=== PATIENT | female | born 1990 | race African-American/Black ===

== ENCOUNTER 2016-03-01 12:18 | Emergency (ER) | payer MEDICAID ==
[~2016-03-01] VITALS: Ht 165.1 cm; Wt 59.1 kg
[2016-03-01 12:22] VITALS: BP 126/88; PULSE 89; TEMP 98.7
[2016-03-01 13:09] LABS: BASO % 0.5 % (0.0-2.0); EOS % 0.5 % (0-4.0); GRAN # 3.9 (1.4-6.5); GRAN % 61.8 % (42.2-75.2); HEMATOCRIT 37.6 % (37.0-47.0); HEMOGLOBIN 12.3 g/dl (12.5-16.0); LYMPH # 2.1 (1.2-3.4); MEAN CELL VOLUME 78 fl (80.0-100.0); MEAN CORPUSCULAR HEMOGLOBIN 25 pg (27.0-31.0); MEAN CORPUSCULAR HGB CONC 33 g/dl (33.0-37.0); MEAN PLATELET VOLUME 9.7 fl (7.4-10.4); MONO # 0.3 (0.1-0.6); PLATELET COUNT 214 K/mm3 (130-400); RED BLOOD COUNT 4.85 M/mm3 (4.10-5.30); REDCELL DISTRIBUTION WIDTH-CV 14.1 % (11.5-14.5); WHITE BLOOD COUNT 6.2 K/mm3 (4.8-10.8)
[2016-03-01 13:17] LABS: PH 5 (5-8); SQUAMOUS EPITHELIAL 20-50 /hpf; URINE APPEARANCE Cloudy; URINE BACTERIA Rare /hpf; URINE BILIRUBIN Negative (NEGATIVE); URINE BLOOD Negative (NEGATIVE); URINE COLOR Yellow; URINE GLUCOSE Negative (NEGATIVE); URINE KETONE Negative (NEGATIVE); URINE RBC 0-2 /hpf
[2016-03-01 13:29] LABS: ADJUSTED CALCIUM 9.1 mg/dL (8.4-10.2); ALBUMIN 4.5 gm/dL (3.5-5.0); CALCIUM 9.5 mg/dL (8.4-10.2); CREATININE, serum 0.74 mg/dL (0.52-1.25); POTASSIUM 4.1 mmol/L (3.4-5.0); TOTAL PROTEIN 8.1 gm/dL (6.4-8.2)
[2016-03-01] MEDS ORDERED: ZOFRAN ODT4 MG PO (14:09)
== END 2016-03-01 14:14 | disposition home or self-care (01) ==
LOC: COL.ER 12:18
PROVIDERS: Physician Assistant
DX: K52.9 Noninfective gastroenteritis and colitis, unspecified (principal)
CPT/HCPCS: C9113; J2765; J7030

== ENCOUNTER 2016-06-03 19:02 | Emergency (ER) | payer MEDICAID ==
[~2016-06-03] VITALS: Ht 165.1 cm; Wt 59.1 kg
[~2016-06-03 19:02] MED LIST: ZOFRAN ODT4 MG PO
[2016-06-03 19:05] VITALS: TEMP 98.1
[2016-06-03 19:39] VITALS: BP 134/67; PULSE 86
== END 2016-06-03 19:39 | disposition home or self-care (01) ==
LOC: COL.ER 19:02
DX: M65.4 Radial styloid tenosynovitis [de Quervain] (principal)

== ENCOUNTER 2016-07-04 17:51 | Emergency (ER) | payer MEDICAID ==
[~2016-07-04] VITALS: Ht 165.1 cm; Wt 58.2 kg
[2016-07-04 17:55] VITALS: BP 134/88; TEMP 98.3
[2016-07-04 18:32] LABS: BASO % 0.5 % (0.0-2.0); EOS # 0.1 (0.0-0.7); GRAN # 3.5 (1.4-6.5); LYMPH # 2.3 (1.2-3.4); LYMPH % 36.9 % (20.0-51.0); MEAN CELL VOLUME 80 fl (80.0-100.0); MEAN CORPUSCULAR HGB CONC 33 g/dl (33.0-37.0); MONO # 0.3 (0.1-0.6); MONO % 4.4 % (1.7-9.3); PLATELET COUNT 274 K/mm3 (130-400); RED BLOOD COUNT 4.42 M/mm3 (4.10-5.30); REDCELL DISTRIBUTION WIDTH-CV 14.1 % (11.5-14.5); WHITE BLOOD COUNT 6.2 K/mm3 (4.8-10.8)
[2016-07-04 18:37] LABS: PH 7 (5-8); SQUAMOUS EPITHELIAL 0-2 /hpf; URINE APPEARANCE Clear; URINE BACTERIA None Seen /hpf; URINE BILIRUBIN Negative (NEGATIVE); URINE BLOOD Negative (NEGATIVE); URINE COLOR Yellow; URINE GLUCOSE Negative (NEGATIVE); URINE KETONE Negative (NEGATIVE); URINE RBC 0-2 /hpf; URINE UROBILINOGEN Negative (NEGATIVE); URINE WBC 0-2 /hpf
[2016-07-04 18:38] LABS: HEMATOCRIT 35.5 % (37.0-47.0); HEMOGLOBIN 11.6 g/dl (12.5-16.0); MEAN CORPUSCULAR HEMOGLOBIN 26 pg (27.0-31.0)
[2016-07-04 18:45] LABS: ADJUSTED CALCIUM 8.4 mg/dL (8.4-10.2); ALANINE AMINOTRANSFERASE 19 U/L (9-52); ALBUMIN 4.3 gm/dL (3.5-5.0); ALKALINE PHOSPHATASE 60 U/L (50-136); ANION GAP 13 mmol/L (7-16); BILIRUBIN,TOTAL 0.6 mg/dL (0.0-1.0); BLOOD UREA NITROGEN 10 mg/dL (7-17); C-REACTIVE PROTEIN < 0.5 mg/dL (0.0-0.9); CALCIUM 8.6 mg/dL (8.4-10.2); CARBON DIOXIDE 24 mmol/L (22-30); CHLORIDE 102 mmol/L (98-107); CREATININE, serum 0.71 mg/dL (0.52-1.25); GLUCOSE 88 mg/dL (74-106); POTASSIUM 4.2 mmol/L (3.4-5.0); SODIUM 139 mmol/L (137-145); TOTAL PROTEIN 7.7 gm/dL (6.4-8.2)
[2016-07-04] MEDS ORDERED: ULTRAM 50MG TAB50 MG PO (20:17)
[2016-07-04 20:29] VITALS: PULSE 72
== END 2016-07-04 20:31 | disposition home or self-care (01) ==
LOC: COL.ER 17:51
PROVIDERS: Nurse Practitioner
DX: R10.11 Right upper quadrant pain (principal); R11.0 Nausea
CPT/HCPCS: J1170; J2405; J7030

== ENCOUNTER 2016-07-11 17:22 | Emergency (ER) | payer MEDICAID ==
[~2016-07-11] VITALS: Ht 165.1 cm; Wt 57.7 kg
[~2016-07-11 17:22] MED LIST changes: +ULTRAM 50MG TAB50 MG PO
[2016-07-11 17:25] VITALS: TEMP 98
[2016-07-11 18:17] LABS: BASO % 0.5 % (0.0-2.0); EOS # 0.1 (0.0-0.7); EOS % 0.8 % (0-4.0); GRAN # 3.5 (1.4-6.5); GRAN % 57.4 % (42.2-75.2); HEMATOCRIT 36.9 % (37.0-47.0); HEMOGLOBIN 11.7 g/dl (12.5-16.0); LYMPH # 2.2 (1.2-3.4); LYMPH % 35.2 % (20.0-51.0); MEAN CELL VOLUME 81 fl (80.0-100.0); MEAN CORPUSCULAR HEMOGLOBIN 26 pg (27.0-31.0); MEAN CORPUSCULAR HGB CONC 32 g/dl (33.0-37.0); MONO # 0.4 (0.1-0.6); MONO % 5.9 % (1.7-9.3); PLATELET COUNT 245 K/mm3 (130-400); RED BLOOD COUNT 4.57 M/mm3 (4.10-5.30); REDCELL DISTRIBUTION WIDTH-CV 14.3 % (11.5-14.5); WHITE BLOOD COUNT 6.1 K/mm3 (4.8-10.8)
[2016-07-11 18:19] LABS: PH 7 (5-8); URINE APPEARANCE Clear; URINE BILIRUBIN Negative (NEGATIVE); URINE BLOOD Negative (NEGATIVE); URINE COLOR Straw; URINE GLUCOSE Negative (NEGATIVE); URINE KETONE Negative (NEGATIVE); URINE UROBILINOGEN Negative (NEGATIVE)
[2016-07-11 18:23] LABS: URINE RBC None Seen /hpf; URINE WBC None Seen /hpf
[2016-07-11 18:26] LABS: ADJUSTED CALCIUM 8.5 mg/dL (8.4-10.2); ALBUMIN 4.4 gm/dL (3.5-5.0); BILIRUBIN,TOTAL 0.8 mg/dL (0.0-1.0); CALCIUM 8.8 mg/dL (8.4-10.2); CREATININE, serum 0.67 mg/dL (0.52-1.25); POTASSIUM 4.3 mmol/L (3.4-5.0); TOTAL PROTEIN 7.7 gm/dL (6.4-8.2)
[2016-07-11] MEDS ORDERED: VALIUM 2MG T2 MG/TAB PO (20:24)
[2016-07-11 20:35] VITALS: BP 122/90; PULSE 78
== END 2016-07-11 20:37 | disposition home or self-care (01) ==
LOC: COL.ER 17:22
PROVIDERS: Physician Assistant Medical
DX: M54.5 Low back pain (principal); R10.11 Right upper quadrant pain
CPT/HCPCS: J1885; J7030; Q9967

== ENCOUNTER 2018-05-04 12:24 | Emergency (ER) | payer SELFPAY ==
[~2018-05-04] VITALS: Ht 165.1 cm; Wt 61.6 kg
[~2018-05-04 12:24] MED LIST changes: +VALIUM 2MG T2 MG/TAB PO
[2018-05-04 12:32] VITALS: TEMP 98.6
[2018-05-04] MEDS ORDERED: AMOXICILLIN875 MG PO (13:39)
[2018-05-04 13:46] VITALS: BP 122/80; PULSE 88
== END 2018-05-04 13:46 | disposition home or self-care (01) ==
LOC: COL.ER 12:24
DX: J04.0 Acute laryngitis (principal); J02.9 Acute pharyngitis, unspecified; J01.90 Acute sinusitis, unspecified

== ENCOUNTER 2020-03-29 10:40 | Emergency (ER) | payer SELFPAY ==
[~2020-03-29] VITALS: Ht 165.1 cm; Wt 68.2 kg
[~2020-03-29 10:40] MED LIST changes: +AMOXICILLIN875 MG PO; +CEPHALEXIN500 M1 PO
[2020-03-29 10:45] VITALS: BP 172/121; PULSE 94; TEMP 98.3
== END 2020-03-29 11:34 | disposition home or self-care (01) ==
LOC: COL.ER 10:40
DX: S02.5XXA Fracture of tooth (traumatic), initial encounter for closed fracture (principal); X58.XXXA Exposure to other specified factors, initial encounter
CPT/HCPCS: J1885

== ENCOUNTER 2020-05-15 11:32 | Emergency (ER) | payer OTHER ==
[~2020-05-15] VITALS: Ht 165.1 cm; Wt 65.9 kg
[2020-05-15 12:05] VITALS: TEMP 98.3
[2020-05-15 12:39] LABS: BASO # 0.1 (0.0-0.2); BASO % 0.6 % (0.0-2.0); EOS # 0.1 (0.0-0.7); EOS % 0.5 % (0-4.0); GRAN # 8.1 (1.4-6.5); GRAN % 78.4 % (42.2-75.2); HEMOGLOBIN 10.6 g/dl (12.5-16.0); LYMPH # 1.6 (1.2-3.4); MEAN CELL VOLUME 75 fl (80.0-100.0); MEAN CORPUSCULAR HEMOGLOBIN 23 pg (27.0-31.0); MEAN CORPUSCULAR HGB CONC 31 g/dl (33.0-37.0); MEAN PLATELET VOLUME 10.4 fl (7.4-10.4); MONO # 0.4 (0.1-0.6); MONO % 4.1 % (1.7-9.3); PLATELET COUNT 321 K/mm3 (130-400); RED BLOOD COUNT 4.61 M/mm3 (4.10-5.30); REDCELL DISTRIBUTION WIDTH-CV 17.5 % (11.5-14.5)
[2020-05-15 12:40] LABS: ALBUMIN 4.5 gm/dL (3.5-5.0); BILIRUBIN,TOTAL 0.7 mg/dL (0.0-1.0); CALCIUM 9.4 mg/dL (8.4-10.2); CREATININE, serum 0.91 (0.52-1.25); POTASSIUM 4.2 mmol/L (3.4-5.0)
[2020-05-15 12:55] LABS: HEMATOCRIT 34.6 % (37.0-47.0)
[2020-05-15 14:28] LABS: COLLECTION METHOD CLEAN CATCH
[2020-05-15 14:38] LABS: MUCOUS Present /lpf; PH 6 (5-8); SQUAMOUS EPITHELIAL 0-2 /hpf; URINE APPEARANCE Clear; URINE BACTERIA Rare /hpf; URINE BILIRUBIN Negative (NEGATIVE); URINE BLOOD Negative (NEGATIVE); URINE COLOR Yellow; URINE GLUCOSE Negative (NEGATIVE); URINE KETONE 1+ (NEGATIVE); URINE LEUKOCYTE ESTERASE Negative (NEGATIVE); URINE NITRATE Negative (NEGATIVE); URINE PROTEIN(semi-quant) Negative (NEGATIVE); URINE UROBILINOGEN Negative (NEGATIVE)
[2020-05-15] MEDS ORDERED: MACROBID 1100 MG/CAP PO (15:02)
[2020-05-15 16:05] VITALS: BP 148/88; PULSE 87
[2020-06-15] MEDS ORDERED: AMOXICILLIN 8751 TAB PO (10:25)
== END 2020-05-15 16:07 | disposition home or self-care (01) ==
LOC: COL.ER 11:32
PROVIDERS: Nurse Practitioner Primary Care
DX: N39.0 Urinary tract infection, site not specified (principal); Z20.822 Contact with and (suspected) exposure to COVID-19; Z32.02 Encounter for pregnancy test, result negative
CPT/HCPCS: J0696; J1885; J2405; J7030

== ENCOUNTER → 2020-06-15 | Emergency (ER) | payer SELFPAY ==
[~2020-06-15] VITALS: Ht 165.1 cm; Wt 68.2 kg
[~2020-06-15] MED LIST changes: +AMOXICILLIN 25250 MG PO; +AMOXICILLIN 8751 TAB PO; +MACROBID 1100 MG/CAP PO; +NORCO 325 MG-51 TAB PO; +PEN-VEE K500 MG PO; +PRENATAL TABLET PO
[2020-06-15 09:52] VITALS: BP 138/79; TEMP 98.6
[2020-06-15 11:31] VITALS: PULSE 75
== END ==
LOC: COL.ER 09:44
DX: K04.7 Periapical abscess without sinus (principal)
CPT/HCPCS: J1885

== ENCOUNTER 2020-08-17 12:37 | Emergency (ER) | payer MEDICAID ==
[~2020-08-17] VITALS: Ht 12.7 cm; Wt 68.2 kg
[~2020-08-17 12:37] MED LIST changes: -AMOXICILLIN 25250 MG PO; -NORCO 325 MG-51 TAB PO; -PEN-VEE K500 MG PO; -PRENATAL TABLET PO
[2020-08-17 13:26] VITALS: BP 141/94; PULSE 98; TEMP 98.7
== END 2020-08-17 16:05 | disposition left against medical advice (07) ==
LOC: COL.ER 12:37
DX: O26.891 Other specified pregnancy related conditions, first trimester (principal); R10.9 Unspecified abdominal pain; M54.9 Dorsalgia, unspecified; O26.811 Pregnancy related exhaustion and fatigue, first trimester; R53.83 Other fatigue; Z3A.01 Less than 8 weeks gestation of pregnancy

== ENCOUNTER 2020-09-30 16:36 | Emergency (ER) | payer MEDICAID ==
[~2020-09-30] VITALS: Ht 165.1 cm; Wt 63.6 kg
[2020-09-30 17:10] VITALS: TEMP 98.2
[2020-09-30] MEDS ORDERED: PEN-VEE K500 MG PO (17:54)
[2020-09-30] MEDS ORDERED: NORCO 325 MG-51 TAB PO (17:54)
[2020-09-30 18:16] VITALS: BP 132/88; PULSE 92
== END 2020-09-30 18:17 | disposition home or self-care (01) ==
LOC: COL.ER 16:36
DX: O99.611 Diseases of the digestive system complicating pregnancy, first trimester (principal); K04.7 Periapical abscess without sinus; Z3A.00 Weeks of gestation of pregnancy not specified

== ENCOUNTER 2020-10-14 20:11 | Emergency (ER) | payer MEDICAID ==
[~2020-10-14] VITALS: Ht 165.1 cm; Wt 65.9 kg
[~2020-10-14 20:11] MED LIST changes: +NORCO 325 MG-51 TAB PO; +PEN-VEE K500 MG PO
[2020-10-14 22:10] LABS: COLLECTION METHOD CLEAN CATCH
[2020-10-14 22:16] LABS: MUCOUS Present /lpf; PH 7 (5-8); URINE APPEARANCE Hazy; URINE BACTERIA Rare /hpf; URINE BILIRUBIN Negative (NEGATIVE); URINE BLOOD Negative (NEGATIVE); URINE COLOR Yellow; URINE GLUCOSE Negative (NEGATIVE); URINE KETONE 1+ (NEGATIVE); URINE LEUKOCYTE ESTERASE Negative (NEGATIVE); URINE NITRATE Negative (NEGATIVE); URINE PROTEIN(semi-quant) Negative (NEGATIVE); URINE RBC 0-2 /hpf; URINE UROBILINOGEN Negative (NEGATIVE); URINE WBC 0-2 /hpf
[2020-10-14] MEDS ORDERED: AMOXICILLIN 25250 MG PO (23:17)
[2020-10-14] MEDS ORDERED: NORCO 325 MG-51 TAB PO (23:17)
[2020-10-14 23:31] VITALS: BP 133/96; PULSE 95; TEMP 97.9
== END 2020-10-14 23:31 | disposition home or self-care (01) ==
LOC: COL.ER 20:11
PROVIDERS: Personal Emergency Response Attendant
DX: O9A.212 Injury, poisoning and certain other consequences of external causes complicating pregnancy, second trimester (principal); S30.1XXA Contusion of abdominal wall, initial encounter; Z3A.16 16 weeks gestation of pregnancy; W10.9XXA Fall (on) (from) unspecified stairs and steps, initial encounter

== ENCOUNTER 2020-11-16 23:08 | Outpatient (CLI) | payer MEDICAID ==
[~2020-11-16] VITALS: Ht 165.1 cm; Wt 63.2 kg
[~2020-11-16 23:08] MED LIST changes: +AMOXICILLIN 25250 MG PO
--- NOTE | 2020-11-16 23:30 | NUR ---
2330 G2L1 at 20.1 weeks gestation to L&D with c/o cramping, watery discharge, and spotting. She states that she started having cramping around 2000 tonight that comes about every 6 minutes, an episode of watery discharge at 2014, and spotting when she wiped after going to the bathroom at 2300. FHR doppler at 150bpm. [place] showing ctx q4-6 minutes, mild to palpation. VSS. SVE closed, amnio trace negative. No fluid noted with exam.
[2020-11-16 23:50] VITALS: BP 126/86; PULSE 94; TEMP 98.4
[2020-11-17] LABS: COLLECTION METHOD CLEAN CATCH
[2020-11-17] MEDS ORDERED: PRENATAL TABLET PO (00:04)
[2020-11-17 00:05] LABS: MUCOUS Present /lpf; PH 6 (5-8); SQUAMOUS EPITHELIAL 0-2 /hpf; URINE APPEARANCE Clear; URINE BACTERIA Rare /hpf; URINE BILIRUBIN Negative (NEGATIVE); URINE BLOOD Negative (NEGATIVE); URINE COLOR Yellow; URINE GLUCOSE Negative (NEGATIVE); URINE KETONE 1+ (NEGATIVE); URINE LEUKOCYTE ESTERASE Negative (NEGATIVE); URINE NITRATE Negative (NEGATIVE); URINE PROTEIN(semi-quant) Negative (NEGATIVE); URINE RBC 0-2 /hpf; URINE UROBILINOGEN Negative (NEGATIVE)
--- NOTE | 2020-11-17 00:15 | NUR ---
Patient aware that UA does not show infection. Discharge instructions reviewed including to increase fluid intake and to call [facility] in the morning for follow-up. labor precautions reviewed.
== END 2020-11-17 00:20 | disposition home or self-care (01) ==
LOC: COL.ER 23:08 → LDRO 23:08 → EDSTATUS 23:20 → LDR 23:51 → LDRO 11-17 00:20
PROVIDERS: Student in an Organized Health Care Education/Training Program
DX: O26.852 Spotting complicating pregnancy, second trimester (principal); O26.892 Other specified pregnancy related conditions, second trimester; R25.2 Cramp and spasm; Z3A.20 20 weeks gestation of pregnancy
CPT/HCPCS: OP

== ENCOUNTER 2020-12-21 14:41 | Outpatient (CLI) | payer MEDICAID ==
[~2020-12-21 14:41] MED LIST changes: +PRENATAL TABLET PO
--- NOTE | 2020-12-21 14:45 | NUR ---
Patient ambulatory to LR4, changed into gown, FHR/TOCO monitors placed and explained. Patient states " I felt some fluid when I showered yesterday and then having some clear sticky discharge now, and a lot of lower pressure with some sharp pains". Patient denies any regular contractions, vaginal bleeding, or decreased movement. Plan of care discussed. SVE-closed/thick/high per Phill VILLALPANDO and amniotest negative.
[2020-12-21 15:24] VITALS: BP 124/80; PULSE 95
--- NOTE | 2020-12-21 15:24 | NUR ---
Patient given discharge instructions and agrees to plan of care. Questions answered. 1335: Patient ambulates off unit.
== END 2020-12-21 15:35 | disposition home or self-care (01) ==
LOC: LDRO 14:41 → LDR 14:49 → LDRO 15:35
DX: O26.892 Other specified pregnancy related conditions, second trimester (principal); R10.2 Pelvic and perineal pain; Z3A.25 25 weeks gestation of pregnancy
CPT/HCPCS: OP

== ENCOUNTER 2020-12-25 20:21 | Emergency (ER) | payer MEDICAID ==
[~2020-12-25] VITALS: Ht 165.1 cm; Wt 68.2 kg
[2020-12-25 20:40] VITALS: TEMP 98.1
[2020-12-25 21:10] VITALS: BP 134/77; PULSE 100
== END 2020-12-25 21:11 | disposition home or self-care (01) ==
LOC: COL.ER 20:21
DX: O9A.212 Injury, poisoning and certain other consequences of external causes complicating pregnancy, second trimester (principal); S89.91XA Unspecified injury of right lower leg, initial encounter; Z3A.24 24 weeks gestation of pregnancy; X50.0XXA Overexertion from strenuous movement or load, initial encounter; Y93.39 Activity, other involving climbing, rappelling and jumping off

== ENCOUNTER 2020-12-31 18:38 | Emergency (ER) | payer MEDICAID ==
[~2020-12-31] VITALS: Ht 165.1 cm; Wt 68.2 kg
[2020-12-31 20:24] LABS: BASO % 0.5 % (0.0-2.0); EOS # 0.1 K/mm3 (0.0-0.7); EOS % 0.7 % (0-4.0); GRAN # 6.6 K/mm3 (1.4-6.5); LYMPH # 1.7 K/mm3 (1.2-3.4); LYMPH % 18.9 % (20.0-51.0); MEAN CELL VOLUME 71 fl (80.0-100.0); MEAN CORPUSCULAR HGB CONC 32 g/dl (33.0-37.0); MEAN PLATELET VOLUME 10.8 fl (7.4-10.4); MONO # 0.5 K/mm3 (0.1-0.6); MONO % 5.6 % (1.7-9.3); PLATELET COUNT 257 K/mm3 (130-400)
[2020-12-31 20:25] LABS: HEMATOCRIT 28.2 % (37.0-47.0); HEMOGLOBIN 8.9 g/dl (12.5-16.0); MEAN CORPUSCULAR HEMOGLOBIN 22 pg (27.0-31.0)
[2020-12-31 20:45] LABS: BILIRUBIN,TOTAL 0.2 mg/dL (0.2-1.2); CALCIUM 8.4 mg/dL (8.4-10.2); CREATININE, serum 0.61 mg/dL (0.57-1.11); POTASSIUM 3.6 mmol/L (3.5-4.5); TOTAL PROTEIN 6.8 gm/dL (6.2-8.1)
[2020-12-31 20:55] LABS: COLLECTION METHOD CLEAN CATCH
[2020-12-31 21:07] LABS: MUCOUS Present /lpf; PH 6 (5-8); SQUAMOUS EPITHELIAL 0-2 /hpf; URINE APPEARANCE Clear; URINE BACTERIA Rare /hpf; URINE BILIRUBIN Negative (NEGATIVE); URINE BLOOD Negative (NEGATIVE); URINE COLOR Yellow; URINE GLUCOSE Negative (NEGATIVE); URINE KETONE Negative (NEGATIVE); URINE LEUKOCYTE ESTERASE Negative (NEGATIVE); URINE NITRATE Negative (NEGATIVE); URINE PROTEIN(semi-quant) Negative (NEGATIVE); URINE RBC 0-2 /hpf; URINE UROBILINOGEN Negative (NEGATIVE)
--- NOTE | 2020-12-31 21:20 | NUR ---
[id number] 26 WEEK GEST EFM STRIP RAN WITH 150'S BASELINE AND GOOD VARIABILITY NOTED. NO CONTRACTIONS NOTED.
[2020-12-31 22:15] VITALS: BP 126/86; PULSE 95; TEMP 98.1
== END 2020-12-31 22:15 | disposition home or self-care (01) ==
LOC: COL.ER 18:38
PROVIDERS: Nurse Practitioner
DX: O99.412 Diseases of the circulatory system complicating pregnancy, second trimester (principal); R07.89 Other chest pain; Z3A.24 24 weeks gestation of pregnancy; Z56.3 Stressful work schedule
CPT/HCPCS: J7030

== ENCOUNTER → 2021-02-21 | Outpatient (CLI) | payer MEDICAID ==
[~2021-02-21] VITALS: Ht 165.1 cm; Wt 70.0 kg
[2021-02-21 19:30] VITALS: BP 125/80; PULSE 86; TEMP 98.3
--- NOTE | 2021-02-21 19:30 | NUR ---
G2L1 at 34.0 weeks gestation to L&D with c/o a gush of fluid at 1330. She states that she was walking and her pants became wet. She has not had any leaking of fluid since but feels wet. She denies contractions or vaginal bleeding and reports good movement. EFMs explained and applied. FHR 140 bpm and reactive. No ctx per toco. VSS. SVE closed/50/high, no fluid noted with exam, amniotrace is negative. Plan of care reviewed.
--- NOTE | 2021-02-21 20:00 | NUR ---
Discharge instructions reviewed with patient. Patient discharged home in stable condition at 2009.
== END ==
LOC: LDRO 19:00
DX: Z34.93 Encounter for supervision of normal pregnancy, unspecified, third trimester (principal); Z3A.34 34 weeks gestation of pregnancy

== ENCOUNTER 2021-03-02 16:39 | Outpatient (CLI) | payer MEDICAID ==
[~2021-03-02] VITALS: Ht 165.1 cm; Wt 70.5 kg
[2021-03-02 17:00] VITALS: BP 125/83; PULSE 125
[2021-03-02 17:30] VITALS: BP 127/84; PULSE 114
[2021-03-02 18:00] VITALS: BP 147/88; PULSE 120
[2021-03-02 18:27] VITALS: BP 147/88; PULSE 113
== END 2021-03-02 18:30 | disposition home or self-care (01) ==
LOC: LDRO 16:39
DX: O21.9 Vomiting of pregnancy, unspecified (principal); O26.893 Other specified pregnancy related conditions, third trimester; M54.50 Low back pain, unspecified; Z3A.35 35 weeks gestation of pregnancy

== ENCOUNTER 2021-03-13 16:30 | Inpatient (IN) | payer MEDICAID ==
[2021-03-13] VITALS (24 sets, daily range): BP systolic 88–212; BP diastolic 52–95; PULSE 80–122; TEMP 98.9
[~2021-03-13] VITALS: Ht 165.1 cm; Wt 71.4 kg
--- NOTE | 2021-03-13 17:14 | NUR ---
1714PATIENT PLACED ON MONITOR AT THIS TIME, VSS, IV STARTED IN RIGHT FOREARM WITHOUT DIFFIULTY, LABS OBTAINED, CONSENTS AND PLAN OF CARE REVIEWED. ALL QUESTIONS ANSWERED. 1725 DR BE AT BEDSIDE AT THIS TIME, REVIEWED PLAN OF CARE, PATIENT VERBALIZED UNDERSTANDING. SVE COMPLETED.
--- NOTE | 2021-03-13 17:17 | NUR ---
1715PATIENT AMBULATORY TO THE UNIT WITH BROTHER. PATIENT ORIENTED TO ROOM.
[2021-03-13] MEDS ORDERED: NATURAL IRON65 MG (17:45)
[2021-03-13 18:03] LABS: BASO % 0.3 % (0.0-2.0); EOS # 0.1 K/mm3 (0.0-0.7); EOS % 0.5 % (0.0-4.0); GRAN # 7.9 K/mm3 (1.4-6.5); GRAN % 74.9 % (42.2-75.2); LYMPH # 1.9 K/mm3 (1.2-3.4); LYMPH % 17.7 % (20.0-51.0); MEAN CELL VOLUME 66 fl (80.0-100.0); MEAN CORPUSCULAR HGB CONC 31 g/dl (33.0-37.0); MEAN PLATELET VOLUME 11.7 fl (7.4-10.4); MONO # 0.6 K/mm3 (0.1-0.6); PLATELET COUNT 321 K/mm3 (130-400); RED BLOOD COUNT 4.65 M/mm3 (4.10-5.30)
[2021-03-13 18:04] LABS: HEMATOCRIT 30.6 % (37.0-47.0); HEMOGLOBIN 9.5 g/dl (12.5-16.0); MEAN CORPUSCULAR HEMOGLOBIN 20 pg (27-31)
--- NOTE | 2021-03-13 19:25 | NUR ---
1925 UP TO BR TO VOID AND THEN SITTING ON SIDE OF BED FOR EPID PLACEMENT. 193 EPID DOSED. SEE ANESTHESIA RECORD FOR MORE INFORMATION.
--- NOTE | 2021-03-13 19:45 | NUR ---
194 LYING LEFT WEDGE. FHT'S OFF MONITER. WHEN FHT'S FOUND=70'S FOR 40 SECONDS. SVE FT/THICK/BALLOTABLE. TURNED TO LEFT LATERAL. FHT'S 90-100 FOR 120 SECONDS. PITOCIN OFF. HOOK INSERTED. TURNED TO RIGHT LATERAL. FHT'S INCREASE TO 140'S. B/P REMAINS STABLE AT 130'S /80'S DURING EPISODE. 1999 DR PLATT NOTIFIED OF FHT'S AND SVE.
--- NOTE | 2021-03-13 20:31 | NUR ---
2030 DR PLATT CALLED FOR UPDATE. REPORT GIVEN OF PITOCIN REMAINS OFF. LATE DECELS NOTED WITH MOST CONTRACTIONS. WILL COME IN TO VISIT WITH PT. OZ ON PER MASK AT 10L/MIN. REMAINS ON RIGHT LATERAL. 2049 DR PLATT HERE. B/P 88/52 [address]EDRINE [address] PLATT VISITS WITH PT 2054 PITOCIN RESTARTED AT 2 MU/MIN.
--- NOTE | 2021-03-13 22:08 | NUR ---
220 DR PLATT CALLED IN FOR REPORT. 2208 IN ROOM TO TURN PITOCIN UP TO 10MU/MIN 2210 SROM WITH CLEAR FLUID NOTED. SVE CLOSED/THICK/HIGH. TURNED TO LL FOR POSITION CHANGE AND COMFORT. 2219 FHT BASELINE 130 WITH DECEL TO 70'S X 30 SECONDS. REPOSITONED TO RL WITH INCREASE TO BL OVER 120 SECONDS. PITOCIN SUSPENDED AND O2 CONTS PER MASK 2223 DR PLATT NOTIFIED WITH ORDERS TO CONTINUE PITOCIN AND REEVALUATE IN 20 MINUTES. PITOCIN INFUSING AT 10 MU/MIN. REMAINS ON RIGHT SIDE. FHT'S 140'S WITH GOOD VARIABILITY.
--- NOTE | 2021-03-13 23:00 | NUR ---
2300 DR PLATT CALLED IN FOR PROGRESS REPORT AND TO ORDER PITOCIN TO STAY AT 12MU/MIN FOR THE REST OF THE NIGHT.
--- NOTE | 2021-03-13 23:48 | NUR ---
2348 PATIENT REPOSITIONS SELF TO RIGHT WEDGE FROM RIGHT LATERAL AND REMOVES O2. FHTS'S DECREASE FROM BASELINE 120'S TO 90'S X 60 SECONDS WITH RETURN TO BL AND THEN DECREASE TO 90'S X 40 SECONDS AND THEN RETURN TO BL 120'S. RETURNED TO RIGHT LATERAL POSITION AND O2 ON PER MASK.
[2021-03-14] VITALS (60 sets, daily range): BP systolic 98–174; BP diastolic 59–105; PULSE 68–144; TEMP 97.4–98.9
--- NOTE | 2021-03-14 00:10 | NUR ---
0010 FHT BASELINE 140 WITH DECREASE TO 90'S FIR 50 SECONDS AND THEN RETURN TO BASELINE. GOOD VARIABILITY NOTED. SVE WITH NO CHANGE. PITOCIN OFF. TO RIGHT WEDGE AND SEMI DESAI POSITION FOR COMFORT. 0020 TO LEFT LATERAL PER PTS REQUEST FOR POSITION CHANGE.
--- NOTE | 2021-03-14 00:30 | NUR ---
0030 ON LEFT LATERAL. VARIALBE DECELS NOTED WITH ONE TO 60'S FOR 20 SECONDS. RETURNED TO RIGHT LATERAL POSITION.
--- NOTE | 2021-03-14 03:30 | NUR ---
0330 DR PLATT ON UNIT AND STRIP REVIEWED. INSTRUCTED TO LEAVE PITOCIN AT 6MU/MIN FOR AN HOUR OR TWO.
--- NOTE | 2021-03-14 10:06 | NUR ---
DIFFICULTY TRACING CONTINUOUS TOCO DUE TO MATERNAL POSITIONING THROUGHOUT THIS SHIFT, MULTIPLE ATTEMPTS TO READJUST, THIS NURSE INTERMITTENTLY PALPATING CONTRACTIONS AT BEDSIDE TO CONFIRM FREQUENCY, INTENSITY AND DURATION.
--- NOTE | 2021-03-14 12:20 | NUR ---
1220: THIS NURSE ENTERS ROOM TO FIND PT IN DISTRESS, C/O LOWER "PAIN" AND "NEEDING TO POOP", SVE COMPLETE/+2 STATION, NOTIFIED, ROOM PREPARED FOR DELIVERY. PT COACHED THROUGH DEEP BREATHING AND EPIDURAL DOSED TO ASSIST WITH PAIN CONTROL. 1228: TO BEDSIDE TO ASSIST WITH DELIVERY. 1231: OF VIABLE MALE AT THIS TIME, INFANT PLACED ON MATERNAL ABDOMEN AND CARE ASSUMED BY IRASEMA YIP. PERINEUM REMAINS INTACT. 1234: OF PLACENTA, PITOCIN INFUSING PER PROTOCOL. EBL 100CC PER . FUNDUS FIRM AND UMBILICUS, SCANT LOCHIA WITH NO CLOTS PRESENT. VITAL SIGNS STABLE. WILL CONTINUE WITH PP CARES PER PROTOCOL.
--- NOTE | 2021-03-14 14:50 | NUR ---
PT REPORTS FULL SENSATION TO BLE, ABLE TO RAISE AND HOLD X5 SECONDS APPROPRIATELY. VSS, FUNDUS FIRM AND 2FB BELOW UMBILICUS, SCANT LOCHIA/NO CLOTS. AMBULATORY TO RESTROOM WITH STEADY GAIT, DENIES DIZZINESS. VOIDS 750CC OF BLOOD TINGED URINE. OZZIE CARE, NEW GOWN, NEW UNDERWEAR, AND NEW PAD PROVIDED FOR PATIENT. PT TO ROOM 215 IN STABLE CONDITION TO CONTINUE PP RECOVERY.
--- NOTE | 2021-03-14 18:30 | NUR ---
Report recieved. Resting in bed. Updated whiteboard and reviewed POC. Wishes to pump and feed. Discussed pumping. Pump to bedside, encouraged to pumped every 3 hours for approximately 15 minutes. Reviewed pump and pump part; martial provided to wash pump supplies. Questions invited and denied.
[2021-03-15] VITALS: BP 115/82; PULSE 76; TEMP 98.4
[2021-03-15 05:00] VITALS: BP 118/77; PULSE 82; TEMP 98.1
[2021-03-15 07:00] VITALS: BP 113/82; PULSE 85; TEMP 97.4
--- NOTE | 2021-03-15 10:16 | NUR ---
Initial visit; Patient thanked Manager Council for offering congratulations and God's blessings for the of her son. Manager Council thanked mom for choosing [facility].
[2021-03-15 12:00] VITALS: BP 121/81; PULSE 88; TEMP 98.6
[2021-03-15 17:07] VITALS: BP 122/80; PULSE 74; TEMP 98.3
[2021-03-15 20:00] VITALS: BP 124/76; PULSE 82; TEMP 98.4
[2021-03-16 07:30] VITALS: BP 133/84; PULSE 78; TEMP 97.1
[2021-03-16] MEDS ORDERED: PERCOCET 325 MG1 TA2 PO (08:23)
[2021-03-16] MEDS ORDERED: MOTRIN 800800 MG/TAB PO (08:23)
[2021-03-16 16:15] VITALS: BP 128/89; PULSE 84; TEMP 98.3
== END 2021-03-16 17:30 | disposition home or self-care (01) | DRG 807 ==
LOC: LDR 16:30 → OB 17:05 → LDR 17:05 → OB 03-14 14:56
PROVIDERS: ADMIT Obstetrics & Gynecology
PROC: 10E0XZZ Delivery of Products of Conception, External Approach (ICD-10-PCS; principal; 2021-03-14)
PROC: 3E033VJ Introduction of Other Hormone into Peripheral Vein, Percutaneous Approach (ICD-10-PCS; 2021-03-14)
DX: O36.5930 Maternal care for other known or suspected poor fetal growth, third trimester, not applicable or unspecified (principal); Z37.0 Single live birth; O36.8130 Decreased fetal movements, third trimester, not applicable or unspecified; O43.123 Velamentous insertion of umbilical cord, third trimester; O99.02 Anemia complicating childbirth; D64.9 Anemia, unspecified; O69.81X0 Labor and delivery complicated by cord around neck, without compression, not applicable or unspecified; O76 Abnormality in fetal heart rate and rhythm complicating labor and delivery; O74.6 Other complications of spinal and epidural anesthesia during labor and delivery; I95.2 Hypotension due to drugs; Z3A.36 36 weeks gestation of pregnancy
CPT/HCPCS: J2405; J2590; J2795; J7120

== ENCOUNTER 2021-06-01 19:26 | Emergency (ER) | payer MEDICAID ==
[~2021-06-01] VITALS: Ht 165.1 cm; Wt 60.5 kg
[~2021-06-01 19:26] MED LIST changes: +MOTRIN 800800 MG/TAB PO; +NATURAL IRON65 MG; +PERCOCET 325 MG1 TA2 PO
[2021-06-01 19:34] VITALS: TEMP 98.1
[2021-06-01] MEDS ORDERED: NORCO 325 MG-51 TAB PO (20:02)
[2021-06-01 20:30] VITALS: BP 116/81; PULSE 80
== END 2021-06-01 20:28 | disposition home or self-care (01) ==
LOC: COL.ER 19:26
DX: K08.89 Other specified disorders of teeth and supporting structures (principal)

== ENCOUNTER 2021-08-22 20:00 | Emergency (ER) | payer MEDICAID ==
[~2021-08-22] VITALS: Ht 165.1 cm; Wt 60.9 kg
[2021-08-22 20:42] LABS: COLLECTION METHOD CLEAN CATCH
[2021-08-22 20:52] LABS: MUCOUS Present (NOT PRESENT); PH 5 (5-8); SQUAMOUS EPITHELIAL 0-2 /hpf (0-10); URINE APPEARANCE Hazy (CLEAR/HAZY); URINE BACTERIA Rare /hpf (NONE SEEN); URINE BILIRUBIN Negative (NEGATIVE); URINE BLOOD Negative (NEGATIVE); URINE COLOR Yellow (YELLOW); URINE GLUCOSE Negative (NEGATIVE); URINE KETONE Negative (NEGATIVE); URINE LEUKOCYTE ESTERASE 3+ (NEGATIVE); URINE NITRATE Negative (NEGATIVE); URINE PROTEIN(semi-quant) Negative (NEGATIVE)
[2021-08-22] MEDS ORDERED: OMNICEF 300MG300 MG PO (21:28)
[2021-08-22 21:55] VITALS: BP 130/80; PULSE 83; TEMP 98.4
== END 2021-08-22 22:00 | disposition home or self-care (01) ==
LOC: COL.ER 20:00
PROVIDERS: Nurse Practitioner Primary Care
DX: S02.5XXA Fracture of tooth (traumatic), initial encounter for closed fracture (principal); N39.0 Urinary tract infection, site not specified; Z28.310 Unvaccinated for COVID-19; X58.XXXA Exposure to other specified factors, initial encounter
CPT/HCPCS: J1885

== ENCOUNTER 2023-09-14 12:10 | Emergency (ER) | payer OTHER ==
[~2023-09-14] VITALS: Ht 165.1 cm; Wt 61.4 kg
[~2023-09-14 12:10] MED LIST changes: +OMNICEF 300MG300 MG PO
[2023-09-14 12:19] VITALS: TEMP 98.2
[2023-09-14 12:58] LABS: BASO % 0.8 % (0.0-2.0); EOS # 0.1 K/mm3 (0.0-0.7); EOS % 1.2 % (0.0-4.0); GRAN # 3.1 K/mm3 (1.4-6.5); GRAN % 59.9 % (42.2-75.2); HEMATOCRIT 39.3 % (37.0-47.0); HEMOGLOBIN 13.1 g/dl (12.5-16.0); LYMPH # 1.7 K/mm3 (1.2-3.4); LYMPH % 33.2 % (20.0-51.0); MEAN CELL VOLUME 86 fl (80.0-100.0); MEAN CORPUSCULAR HEMOGLOBIN 29 pg (27-31); MEAN CORPUSCULAR HGB CONC 33 g/dl (33.0-37.0); MEAN PLATELET VOLUME 9.8 fl (7.4-10.4); MONO # 0.2 K/mm3 (0.1-0.6); MONO % 4.7 % (1.7-9.3); PLATELET COUNT 206 K/mm3 (130-400); RED BLOOD COUNT 4.57 M/mm3 (4.10-5.30); REDCELL DISTRIBUTION WIDTH-CV 12.7 % (11.5-14.5)
[2023-09-14 13:02] LABS: INR 1.2 (0.8-3.0); PROTHROMBIN TIME 13.1 SECONDS (9.7-12.8)
[2023-09-14 13:16] LABS: ALBUMIN 3.9 g/dL (3.5-5.0); BILIRUBIN,TOTAL 0.5 mg/dL (0.2-1.2); CREATININE, serum 0.82 mg/dL (0.57-1.11); POTASSIUM 4.2 mEq/L (3.5-4.5); TOTAL PROTEIN 7.3 g/dl (6.2-8.1)
[2023-09-14] MEDS ORDERED: Ketorolac 15 MG/ML VIAL IV ONE (14:00)
[2023-09-14] MEDS ORDERED: NS 1,000 ML IV ONE (14:00)
[2023-09-14 14:38] VITALS: BP 128/91; PULSE 92
[2023-09-14] MEDS ORDERED: NS 100 ML IV SCH (16:59)
[2023-09-14] MEDS ORDERED: Iohexol 300 - 100 ML VIAL IV ONE (16:59)
== END 2023-09-14 14:40 | disposition home or self-care (01) ==
LOC: COL.ER 12:10
PROVIDERS: Physician Assistant
DX: R51.9 Headache, unspecified (principal); D68.61 Antiphospholipid syndrome; Z86.73 Personal history of transient ischemic attack (TIA), and cerebral infarction without residual deficits; Z86.69 Personal history of other diseases of the nervous system and sense organs
CPT/HCPCS: J0780; J1885; J7030; Q9967